=== PATIENT | female | born 1995 ===

== ENCOUNTER 2017-08-03 18:54 | Emergency (ER) | payer OTHER, BC ==
[2017-08-03 18:54] VITALS: BMI 32.5
[2017-08-03 19:48] VITALS: BP 148/78; PULSE 65; RESP 16; TEMP 99.2; O2SAT 100
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
== END 2017-08-03 23:40 | disposition home or self-care (01) ==
LOC: H.ER 18:54
DX: M54.2 Cervicalgia (principal); V89.2XXA Person injured in unspecified motor-vehicle accident, traffic, initial encounter; Y92.410 Unspecified street and highway as the place of occurrence of the external cause; Z88.0 Allergy status to penicillin